=== PATIENT | male | born 2000 | race Caucasian/White ===

== ENCOUNTER 2022-09-24 11:19 | Emergency (ER) | payer SELFPAY ==
[~2022-09-24] VITALS: Ht 175.3 cm; Wt 77.1 kg
[2022-09-24 11:41] VITALS: BP 116/80
[2022-09-24] MEDS ORDERED: IBUPROFEN 800 MG TAB PO ONE (11:50)
--- NOTE | 2022-09-24 12:03 | NUR ---
X-Ray at bedside.
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
--- NOTE | 2022-09-24 12:09 | NUR ---
PT LEFT FOOT ELEVATED
[2022-09-24] MEDS ORDERED: IBUP-2213 PO (12:24)
[2022-09-24] MEDS ORDERED: LID5T TP (12:24)
--- NOTE | 2022-09-24 12:35 | NUR ---
brittany wrap L ankle x 1
--- NOTE | 2022-09-24 12:54 | NUR ---
Patient discharged with v/s stable. Written and verbal after care instructions given and explained. Patient alert, oriented and verbalized understanding of instructions. Ambulatory with steady gait. All questions addressed prior to discharge. ID band removed. Patient advised to follow up with PMD. Rx of LIDODERM, IBUPROFEN given. Patient educated on indication of medication including possible reaction and side effects. Opportunity to ask questions provided and answered.
== END 2022-09-24 12:54 | disposition home or self-care (01) ==
LOC: MED 11:19
DX: S93.602A Unspecified sprain of left foot, initial encounter (principal); X58.XXXA Exposure to other specified factors, initial encounter; Y93.89 Activity, other specified; Y92.89 Other specified places as the place of occurrence of the external cause; Y99.8 Other external cause status
CPT/HCPCS: 73610; 73630; 99284; Q0092